=== PATIENT | male | born 2005 | race Caucasian/White ===

== ENCOUNTER 2024-04-20 17:33 | Outpatient (REF) | payer OTHER, SELFPAY ==
[2024-04-23 12:49] LABS: Chlamydia Result Negative (Negative); GC Result Negative (Negative)
== END 2024-04-20 17:34 | disposition home or self-care (01) ==
LOC: NCHCN 17:33
PROVIDERS: PCP Nurse Practitioner Family; Visit Provider Family Medicine
DX: Z11.3 Encounter for screening for infections with a predominantly sexual mode of transmission (principal)
CPT/HCPCS: 87491; 87591